=== PATIENT | female | born 1990 | race African-American/Black ===

== ENCOUNTER 2018-09-19 11:23 | Emergency (ER) | payer SELFPAY ==
[2018-09-19 13:58] LABS: Bilirubin Negative (Negative); Blood, Urine Negative (Negative); Clarity CLOUDY (Clear); Glucose, Urine (Dipstick) Negative (Negative); Leukocyte Small (Negative); Nitrite Negative (Negative); Protein, Urine (Dipstick) Negative (Neg-Trace); Specific Gravity, Urine 1.027 (1.002-1.036); pH, Urine 6.5 (5.0-9.0)
[2018-09-19 13:59] LABS: Pregnancy Test - Urine (BHCG) Negative (Negative); Pregu Control Background? CLEAR/WHITE (CLR/WHITE); Pregu Control Bar Appear? YES (CONTROL BAR); Specific Gravity 1.027 (1.002-1.036)
[2018-09-19 14:04] LABS: Bacteria/HPF 1+ HPF (None Seen); Hyaline Casts/LPF 4-6 HYALINE CAST LPF (0-3 Hyaline); Pathc Cast-AUWi Flag 1.16 (0-2.49)
[2018-09-19 14:06] LABS: Yeast-AUWi Flag 32.1 (0-25.0)
[2018-09-19 14:20] LABS: RBC/HPF None Seen HPF (0-3); Yeast-All Forms None Seen HPF (None Seen)
--- NOTE | 2018-09-19 15:09 | RAD ---
CHEST 1 VIEW: INDICATION: Vomiting, headaches, and body aches. COMPARISON: Prior exam dated 11/23/2015. FINDINGS: Lungs are clear. Cardiomediastinal silhouette is accentuated by the exam technique. No acute osseou s abnormality is evident. IMPRESSION: No acute cardiopulmonary abnormality. POS: [facility]
== END 2018-09-19 15:52 | disposition home or self-care (01) ==
LOC: ERS 11:23
DX: B34.9 Viral infection, unspecified (principal); F41.9 Anxiety disorder, unspecified; F32.9 Major depressive disorder, single episode, unspecified
CPT/HCPCS: 71046; 81001; 81025; 87086; 87804